=== PATIENT | female | born 1940 | race Caucasian/White ===

== ENCOUNTER 2018-01-31 22:43 | Emergency (ER) | payer MEDICARE, OTHER, SELFPAY ==
[2018-01-31 22:45] VITALS: BP 165/76; PULSE 62; RESP 20; TEMP 36.9; O2SAT 96; BMI 31.4
--- NOTE | 2018-01-31 23:44 | ED.VISSUMM ---
- ER Visit Summary Date of Service: 01/31/18 Chief Complaint: Fall History of Present Illness: The patient is a 77 F who presents after a fall that occurred tonight. Patient stood up from the couch and fell. Patient states she was not able to stand all the way up when she fell. Patient denies hitting her head or losing consciousness. Family states that they heard a pop when she fell. Patient states the pain is worse in her low back and both knees. Patient states her pain is worse with any movement. Patient denies any paresthesias. Patient was unable to stand or ambulate after the fall. Physical Examination: Vital signs are stable. Patient is afebrile. Patient is in no acute distress. Oral mucosa is pink and moist. Neck is supple there is no JVD noted. Heart was regular rate and rhythm. Lungs are clear and equal bilateral. There is no chest wall tenderness. Abdomen is soft and nontender. Musculoskeletal exam reveals tenderness over the lower lumbar spine. There is no bony crepitance or step-off. There is also tenderness over the knees bilaterally, worse on the right. There is some edema over the right knee. There is no ecchymosis noted. Range of motion was limited in all motions of the knees bilaterally secondary to pain. Extensor mechanisms are intact bilaterally. Sensation was intact to light touch in all digits of the lower extremities. Pedal pulses are equal bilateral. The remaining physical exam is within normal limits. Test Results: X-rays of both knees and the lumbar spine were obtained. There is no acute fracture. There is a large effusion noted in the right knee. CBC and basic metabolic profile were within normal limits. Emergency Department Course and Treatment: Patient was given injection of morphine here. Patient felt better on reevaluation. Patient wants to go home. Patient states she has canes at home to help her get around. Patient was given prescription for Tylenol with codeine. Patient was instructed to follow-up with her primary care physician in 5-7 days. Patient and family understood and are agreeable with the plan. All questions are answered. Disposition: Discharged home Impression: Bilateral knee contusions, lumbar strain, fall This note was generated with [email or web address].[email or web address] software. It may contain incorrect words, spelling, and punctuation that were not noted in review of the chart prior to signing ED Disposition - Plan for ED Patient: Disposition: Home or Assisted Living Chief Complaint: Fall Diagnosis: Contusion of knee, Acute lumbar myofascial strain, Fall Instructions: ED Fall Uncertain Cause Prescriptions: Acetaminophen/Codeine #3 [Tylenol#3] 1 tab PO Q6H PRN PRN 3 Days #12 tab PRN Reason: Pain Referrals: Keith Parr MD [Primary Care Provider] -
--- NOTE | 2018-02-01 | RAD_ITS ---
STUDY: X-RAY - RIGHT KNEE REASON FOR EXAM: Female, 77 years old. Patient fell TECHNIQUE: 2 view(s) of the knee. COMPARISON: None. FINDINGS: There is a total right knee replacement with a metallic hardware in good position. There is a fairly large knee joint effusion. Small than on the left side. The quadriceps and patellar tendons are normal.. RAD/Knee 1 or 2 Views IMPRESSION: A total right knee replacement with a large joint effusion. Metallic hardware is in good position. No fracture Electronically Signed: Monster Maxwell, at 1:30 EDT Tel , Service support ,
--- NOTE | 2018-02-01 | RAD_ITS ---
STUDY: X-RAY - LUMBAR SPINE REASON FOR EXAM: Female, 77 years old. Patient fell TECHNIQUE: 4 view(s) of the lumbar spine were obtained. COMPARISON: None FINDINGS: There is normal alignment and curvature of the lumbosacral spine with no acute fractures or dislocations. The disc spaces look fairly well maintained. The pedicles are intact. The aorta is calcified in its raymundo. RAD/Lumbar Spine 2 or 3 Views IMPRESSION: No acute fractures Electronically Signed: Monster Maxwell, at 1:36 EDT Tel , Service support ,
[2018-02-01] MEDS: Morphine 4 MG/ML Syringe IV (00:10)
--- NOTE | 2018-02-01 00:11 | NURSING ---
pt off backboard at 23:54
[2018-02-01 00:23] LABS: Absolute Lymphocyte Count 1.98 X10^3/ul (0.83-4.51); Absolute Neutrophil Count 9.3 X10^3/uL (2.0-7.7); Basophil# 0.04 X10^3/uL; Basophil% 0.3 % (0-1); Eosinophil# 0.52 X10^3/uL; Hematocrit 38.6 % (37-47); Hemoglobin 13.3 g/dl (12.0-15.0); Lymphocyte # 1.98 X10^3/ul (4.0); Lymphocyte % 15.3 % (19-41); Mean Corp Hgb Conc 34.5 g/gl (32-36); Mean Corpuscular Hgb 31.3 pg (27.0-32.0); Mean Corpuscular Volume 90.8 fL (81-99); Mean Platelet Vol. 9.9 fl (6.2-12.0); Monocyte# 0.97 X10^3/uL; Monocyte% 7.5 % (0-10); Neutrophil # 9.34 X10^3/uL (2.7-7.7); Neutrophil % 72.5 % (47-70); POSITIVE COUNT NO; POSITIVE DIFFERENTIAL NO; POSITIVE MORPHOLOGY NO; Platelet Count 209 K/mm3 (150-450); RBC Distribution Width CV 12.9 % (11.6-14.6); Red Blood Count 4.25 M/mm3 (4.2-5.4); White Blood Count 12.9 K/mm3 (4.4-11.0)
[2018-02-01 00:32] LABS: Anion Gap 9 (5-15); BUN 14 mg/dL (7-18); BUN/Creat Ratio 21.6 RATIO (10-20); Calcium,Total 9.2 mg/dL (8.5-10.1); Chloride 108 mmol/L (98-107); Creatinine, Serum 0.65 mg/dL (0.55-1.02); EST Glomerular Filtration Rate 95 mL/min (>60); Est Glom Filt Rate - Afr Amer 115 mL/min (>60); Estimated Creatinine Clearance 38.44 ml/min; Glucose 170 mg/dL (74-106); Potassium 3.2 mmol/L (3.5-5.1); Sodium Level 144 mmol/L (136-145)
--- NOTE | 2018-02-01 00:33 | RAD_ITS ---
STUDY: X-RAY - LEFT KNEE REASON FOR EXAM: Female, 77 years old. Patient fell TECHNIQUE: 3 view(s) of the knee. COMPARISON: None. FINDINGS: There is a total knee replacement with a metallic hardware in good position. There is a small knee joint effusion. The quadriceps and patellar tendons are normal. The surrounding soft tissues are normal. RAD/Knee 1 or 2 Views IMPRESSION: A total left knee replacement with a metallic hardware in good position. A small knee joint effusion Electronically Signed: Monster Maxewll, at 1:29 EDT Tel , Service support ,
[2018-02-01 02:56] VITALS: BP 162/57; PULSE 57; RESP 16; O2SAT 98
== END 2018-02-01 02:57 | disposition home or self-care (01) ==
PROVIDERS: Emergency Provider Emergency Medicine; Family Provider Family Medicine; PCP Family Medicine
DX: S39.012A Strain of muscle, fascia and tendon of lower back, initial encounter (principal); S80.02XA Contusion of left knee, initial encounter; S80.01XA Contusion of right knee, initial encounter; W18.39XA Other fall on same level, initial encounter; Y93.89 Activity, other specified; Y92.9 Unspecified place or not applicable; I10 Essential (primary) hypertension; E11.9 Type 2 diabetes mellitus without complications; F03.90 Unspecified dementia, unspecified severity, without behavioral disturbance, psychotic disturbance, mood disturbance, and anxiety; Z79.84 Long term (current) use of oral hypoglycemic drugs; Z79.899 Other long term (current) drug therapy
CPT/HCPCS: 72100; 73560; 80048; 85025; 96374; 99285

== ENCOUNTER 2018-08-23 15:03 | Emergency (ER) | payer MEDICARE, OTHER, SELFPAY ==
[2018-08-23 15:04] VITALS: BP 139/67; PULSE 67; RESP 17; TEMP 36.9; O2SAT 97; BMI 29.3
[2018-08-23 15:33] VITALS: TEMP 36.9; O2SAT 100
--- NOTE | 2018-08-23 16:10 | EKG12_ITS ---
Test Reason : SOB Blood Pressure : / mmHG Vent. Rate : 074 BPM Atrial Rate : 074 BPM P-R Int : 166 ms QRS Dur : 090 ms QT Int : 418 ms P-R-T Axes : 011 -38 030 degrees QTc Int : 463 ms Normal sinus rhythm Left axis deviation Moderate voltage criteria for LVH, may be normal variant Abnormal ECG Confirmed by JORY MURRIETA, JESUS ALBERTO ([id number]), publishing editor SIL OLOMS ([id number]) on 08/26/2018 1:52:35 PM Referred By: JOY Confirmed By:JESUS ALBERTO CORLEY MD
--- NOTE | 2018-08-23 16:15 | RAD_ITS ---
STUDY: X-RAY CHEST REASON FOR EXAM: Female, 78 years old. Shortness of breath, chest pain TECHNIQUE: Single AP portable view of the chest. COMPARISON: April 14, 2017 chest x-ray FINDINGS: The lungs are clear and expanded. There is no demonstrated pleural abnormality. Normal size heart. Normal mediastinum and trisha. Normal visualized pulmonary arteries. Normal visualized aortic arch and descending thoracic aorta. There are diffuse degenerative changes of the visualized thoracic spine. Normal visualized ribs, clavicles, and shoulders. There is no demonstrated abnormality of the visualized soft tissue structures of the upper abdomen. RAD/Chest 1 View (Portable) IMPRESSION: Degenerative changes, as described above. No demonstrated acute cardiopulmonary process. Electronically Signed: Willa Smith MD at 16:43 EST Tel , Service support ,
[2018-08-23 16:40] VITALS: BP 147/71; PULSE 78; RESP 16; TEMP 36.7; O2SAT 100; O2SAT 97
[2018-08-23 16:40] LABS: Absolute Lymphocyte Count 1.09 X10^3/ul (0.83-4.51); Absolute Neutrophil Count 6.6 X10^3/uL (2.0-7.7); Basophil# 0.06 X10^3/uL; Basophil% 0.7 % (0-1); Eosinophil# 0.52 X10^3/uL; Eosinophils% 5.9 % (0-5); Hematocrit 39.2 % (37-47); Hemoglobin 12.8 g/dl (12.0-15.0); Lymphocyte # 1.09 X10^3/ul (4.0); Lymphocyte % 12.3 % (19-41); Mean Corp Hgb Conc 32.7 g/gl (32-36); Mean Corpuscular Hgb 30.9 pg (27.0-32.0); Mean Corpuscular Volume 94.7 fL (81-99); Mean Platelet Vol. 10.1 fl (6.2-12.0); Monocyte# 0.54 X10^3/uL; Monocyte% 6.1 % (0-10); Neutrophil % 74.8 % (47-70); Platelet Count 224 K/mm3 (150-450); RBC Distribution Width CV 12.8 % (11.6-14.6); RBC Distribution Width SD 44.2 fl (35.1-43.9); Red Blood Count 4.14 M/mm3 (4.2-5.4); White Blood Count 8.8 K/mm3 (4.4-11.0)
[2018-08-23 16:41] LABS: POSITIVE COUNT NO; POSITIVE DIFFERENTIAL NO; POSITIVE MORPHOLOGY NO
[2018-08-23 16:59] LABS: Anion Gap 8 (5-15); BUN 16 mg/dL (7-18); BUN/Creat Ratio 20.6 RATIO (10-20); Calcium,Total 8.6 mg/dL (8.5-10.1); Chloride 108 mmol/L (98-107); Creatinine, Serum 0.78 mg/dL (0.55-1.02); EST Glomerular Filtration Rate 77 mL/min (>60); Est Glom Filt Rate - Afr Amer 93 mL/min (>60); Estimated Creatinine Clearance 37.85 ml/min; Glucose 177 mg/dL (74-106); Potassium 4.3 mmol/L (3.5-5.1); Sodium Level 141 mmol/L (136-145)
[2018-08-23 17:20] VITALS: BP 126/63; PULSE 75; PULSE 77; RESP 16; RESP 19; TEMP 36.3; O2SAT 95
--- NOTE | 2018-08-23 17:40 | ED.DCSUM_ITS ---
- ER Visit Summary Date of Service: 08/23/18 Chief Complaint: Shortness of breath History of Present Illness: The patient is a 78 F, diabetes hypertension and dementia. Was sent home in a.m. sudden onset of shortness of breath the last 2030 minutes but now since resolved. She denies any chest pain, fever or significant cough. No abdominal pain. No nausea no vomiting no diarrhea. No leg swelling. No hemoptysis. Currently she is symptom-free. She has had episodes like this before. Physical Examination: Well-appearing older female. Vital signs are stable and afebrile. Pulse ox 97% on room air no signs of hypoxia. She is in [place] no distress. She is lying in bed, comfortable. Her and daughter at bedside. HEENT exam unremarkable. Neck nontender no lymphadenopathy. No JVD. Lungs clear to auscultation bilaterally. Heart regular rate and rhythm no murmur rate about 70. Abdomen is soft and nontender. Normal bowel sounds no peritoneal signs. Remedies moves all 4. Calves nontender without edema or cords. Neurologically she is awake. Following commands. Answers questions. Test Results: CBC normal white count 8. Hemoglobin of 12. Electrolytes unremarkable normal creatinine and gap. Troponin normal. EKG sinus rhythm rate of 74 with no acute signs of CT or ischemia. No dysrhythmia. Chest x-ray portable one view no acute abnormality. Normal cardiac silhouette. Normal mediastinum. No infiltrate. No fluids or effusions. Emergency Department Course and Treatment: Repeat exam patient is doing completely well at 1733. Exam remains normal. We discussed multiple options i ncluding anxiety. Patient be discharged home to follow-up as needed. Treatment Plan: See her PCP as needed. Disposition: Discharge Impression: Acute transient dyspnea resolved of uncertain etiology History of diabetes and hypertension and dementia This note was generated with AlienVaultation software. It may contain incorrect words, spelling, and punctuation that were not noted in review of the chart prior to signing ED Disposition - Plan for ED Patient: Referrals: Keith Parr MD [Primary Care Provider] -
--- NOTE | 2018-08-23 17:40 | ED.DEP ---
ED Disposition - Plan for ED Patient: Disposition: Home or Assisted Living Instructions: ED Dyspnea Shortness of Breath Referrals: Keith Parr MD [Primary Care Provider] - As Needed Additional Instructions: If you have a recurrent episode of shortness of breath. Relax. And try to do slow deep breaths. If it does not resolve call the paramedics to come out and check her vital signs and her oxygen. Follow-up with your doctor as needed.
[2018-08-23 17:46] VITALS: BP 125/67; PULSE 78; RESP 16; O2SAT 96
== END 2018-08-23 17:50 | disposition home or self-care (01) ==
PROVIDERS: Emergency Provider Emergency Medicine; Family Provider Family Medicine; PCP Family Medicine
DX: R06.02 Shortness of breath (principal); E11.9 Type 2 diabetes mellitus without complications; I10 Essential (primary) hypertension; F03.90 Unspecified dementia, unspecified severity, without behavioral disturbance, psychotic disturbance, mood disturbance, and anxiety; Z79.84 Long term (current) use of oral hypoglycemic drugs; Z79.899 Other long term (current) drug therapy
CPT/HCPCS: 71045; 80048; 84484; 85025; 93005; 99285; A4216

== ENCOUNTER 2018-10-14 23:23 | Emergency (ER) | payer MEDICARE, OTHER, SELFPAY ==
[2018-10-14 23:25] VITALS: BP 158/73; PULSE 68; RESP 18; TEMP 37.2; O2SAT 97; BMI 29.5
--- NOTE | 2018-10-14 23:33 | EKG12_ITS ---
Test Reason : Blood Pressure : / mmHG Vent. Rate : 071 BPM Atrial Rate : 071 BPM P-R Int : 162 ms QRS Dur : 098 ms QT Int : 430 ms P-R-T Axes : 011 -40 035 degrees QTc Int : 467 ms Normal sinus rhythm with sinus arrhythmia Left axis deviation Moderate voltage criteria for LVH, may be normal variant Poor R-Wave Progression Abnormal ECG Confirmed by APARNA MURRIETA, JOELLE ([id number]), photography editor CRISTOFER MOREL ([id number]) on 10/16/2018 1:35:08 PM Referred By: Confirmed By:JOELLE BRAUN MD
--- NOTE | 2018-10-14 23:37 | ED.DCSUM_ITS ---
- ER Visit Summary Date of Service: 10/14/18 Chief Complaint: Shortness of breath History of Present Illness: The patient is a 78 F presenting with shortness of breath. She states this started this evening. She denies chest pain. She has had a mild nonproductive cough. She denies fever. She has a history of diabetes, hypertension, hypercholesteremia, dementia, sleep apnea. She does not wear home O2. She has had similar episodes in the past that were diagnosed as likely anxiety. Her symptoms are now resolved on arrival to the ED. Physical Examination: Vitals are stable. Patient is afebrile. Alert no acute distress. Pulse ox 98% on room air HEENT exam is unremarkable. Neck is supple. Lungs are clear and equal bilaterally. Heart is regular rate and rhythm. Abdomen is soft nontender nondistended. Extremities are unremarkable. No edema Skin is warm and dry. No focal neurologic deficit. Remainder of exam is unremarkable. Emergency Department Course and Treatment: Chest x-ray shows no acute process. EKG is sinus rate 71 unchanged from previous. CBC, chemistries unremarkable. Troponin is negative. Repeat troponin is also negative. Patient remains asymptomatic in the ED. Her pulse ox remains 95-97% on room air. Advised to follow-up with primary care physician. Advised return to ED if worsening complaints. Disposition: Discharge home Impression: Dyspnea, resolved This note was generated with piSociety dictation software. It may contain incorrect words, spelling, and punctuation that were not noted in review of the chart prior to signing ED Disposition - Plan for ED Patient: Instructions: ED Dyspnea Shortness of Breath Referrals: Keith Parr MD [Primary Care Provider] -
--- NOTE | 2018-10-14 23:42 | RAD_ITS ---
STUDY: X-RAY CHEST REASON FOR EXAM: Female, 78 years old. Chest pain with shortness of breath. TECHNIQUE: AP portable chest. COMPARISON: August 23, 2018. FINDINGS: The lungs are clear and expanded. There is no demonstrated pleural abnormality. Normal size heart. Normal mediastinum and trisha. Normal visualized pulmonary arteries. Normal visualized aortic arch and descending thoracic aorta. Normal visualized thoracic spine. Normal visualized ribs, clavicles, and shoulders. There is no demonstrated abnormality of the visualized soft tissue structures of the upper abdomen. RAD/Chest 1 View (Portable) IMPRESSION: No acute cardiopulmonary disease. Electronically Signed: Vadim Steele MD at 1:36 EDT , Service support ,
[2018-10-14 23:46] LABS: Absolute Neutrophil Count 6.5 X10^3/uL (2.0-7.7); Basophil# 0.05 X10^3/uL; Basophil% 0.5 % (0-1); Eosinophil# 0.91 X10^3/uL; Eosinophils% 8.4 % (0-5); Hematocrit 37.8 % (37-47); Lymphocyte % 22.2 % (19-41); Mean Corp Hgb Conc 34.4 g/gl (32-36); Mean Corpuscular Hgb 31.4 pg (27.0-32.0); Mean Corpuscular Volume 91.3 fL (81-99); Mean Platelet Vol. 9.6 fl (6.2-12.0); Monocyte# 0.95 X10^3/uL; Monocyte% 8.8 % (0-10); Neutrophil # 6.49 X10^3/uL (2.7-7.7); Neutrophil % 59.9 % (47-70); Platelet Count 224 K/mm3 (150-450); RBC Distribution Width SD 42.7 fl (35.1-43.9); Red Blood Count 4.14 M/mm3 (4.2-5.4); White Blood Count 10.8 K/mm3 (4.4-11.0)
[2018-10-14 23:49] LABS: POSITIVE COUNT NO; POSITIVE DIFFERENTIAL NO; POSITIVE MORPHOLOGY NO
[2018-10-15 00:03] LABS: Anion Gap 7 (5-15); BUN 21 mg/dL (7-18); BUN/Creat Ratio 31.9 RATIO (10-20); Calcium,Total 8.7 mg/dL (8.5-10.1); Chloride 107 mmol/L (98-107); Creatinine, Serum 0.66 mg/dL (0.55-1.02); EST Glomerular Filtration Rate 93 mL/min (>60); Est Glom Filt Rate - Afr Amer 112 mL/min (>60); Estimated Creatinine Clearance 37.85 ml/min; Glucose 148 mg/dL (74-106); Potassium 3.8 mmol/L (3.5-5.1); Sodium Level 140 mmol/L (136-145)
--- NOTE | 2018-10-15 01:15 | ED.RN ---
Called radiology, PACS was down, now operational. [employer] sent everything for an official reading but it will be a while.
[2018-10-15 01:41] VITALS: BP 148/75; PULSE 73; RESP 14; O2SAT 96
[2018-10-15 03:03] VITALS: BP 143/64; PULSE 75; RESP 18; O2SAT 93
--- NOTE | 2018-10-15 03:21 | ED.DEP ---
ED Disposition - Plan for ED Patient: Instructions: ED Dyspnea Shortness of Breath Referrals: Keith Parr MD [Primary Care Provider] -
[2018-10-15 03:39] VITALS: BP 143/64; PULSE 73; RESP 16; O2SAT 97
== END 2018-10-15 03:40 | disposition home or self-care (01) ==
PROVIDERS: Emergency Provider Emergency Medicine; Family Provider Family Medicine; PCP Family Medicine
DX: R06.02 Shortness of breath (principal); I10 Essential (primary) hypertension; E11.9 Type 2 diabetes mellitus without complications; F03.90 Unspecified dementia, unspecified severity, without behavioral disturbance, psychotic disturbance, mood disturbance, and anxiety; Z79.84 Long term (current) use of oral hypoglycemic drugs; Z79.899 Other long term (current) drug therapy
CPT/HCPCS: 71045; 80048; 84484; 85025; 93005; 99285; A4216

== ENCOUNTER 2021-10-24 22:30 | Emergency (ER) | payer MEDICARE, OTHER, SELFPAY ==
[2021-10-24 22:32] VITALS: TEMP 35.7; O2SAT 94; BMI 27.4
[2021-10-24 22:35] VITALS: BP 148/67; PULSE 71; RESP 19; O2SAT 95
[2021-10-24 22:37] VITALS: O2SAT 95
--- NOTE | 2021-10-24 22:53 | RAD_ITS ---
STUDY: X-RAY CHEST REASON FOR EXAM: Female, 81 years old. sob TECHNIQUE: AP portable upright COMPARISON: 10/14/2018. FINDINGS: The lungs are clear and expanded. There is no demonstrated pleural abnormality. Normal size heart. Normal mediastinum and trisha. Normal visualized pulmonary arteries. Normal visualized aortic arch and descending thoracic aorta. Normal visualized thoracic spine. Normal visualized ribs, clavicles, and shoulders. There is no demonstrated abnormality of the visualized soft tissue structures of the upper abdomen. RAD/Chest 1 View (Portable) IMPRESSION: Normal x-ray examination of the chest. Electronically Signed: Zach Patel MD at 23:48 EDT ,
--- NOTE | 2021-10-24 22:53 | EKG12_ITS ---
Test Reason : DYSRHYTHMIA Blood Pressure : / mmHG Vent. Rate : 062 BPM Atrial Rate : 062 BPM P-R Int : 146 ms QRS Dur : 094 ms QT Int : 450 ms P-R-T Axes : 035 -41 042 degrees QTc Int : 456 ms Normal sinus rhythm with sinus arrhythmia Left axis deviation Abnormal ECG Confirmed by JORY MURRIETA, JESUS ALBERTO ([id number]), commercial production editor CRISTOFER MOREL ([id number]) on 10/26/2021 9:44:43 AM Referred By: LUIS Confirmed By:JESUS ALBERTO CORLEY MD
--- NOTE | 2021-10-24 22:54 | ED.VIS.DYS ---
HPI History of Present Illness Chief Complaint: Shortness of Breath Narrative Narrative: Patient presents with dyspnea. Apparently was slightly worse tonight, however per over the past few years she has episodes of dyspnea and wheezing every night before bed. The ambulance was called because she was feeling somewhat worse today. No fevers or chills recently, patient is denying chest pain and she says she is feeling much better now. She has dementia thus her history is somewhat limited, most of the history I obtained is from . PFSH PFSH Home Medications amlodipine 10 mg PO DAILY 04/14/17 [History Last Taken Unknown] atenolol 50 mg PO BID 04/14/17 [History Last Taken Unknown] budesonide-formoterol [Symbicort] 2 puff INHALATION BID 04/14/17 [History Last Taken Unknown] calcium carbonate-vitamin D3 [Calcium 600 + D(3)] 1 ea PO BID 04/14/17 [History Last Taken Unknown] cholecalciferol (vitamin D3) 50,000 unit PO QWEEK 04/14/17 [History Last Taken Unknown] donepezil 10 mg PO QHS 04/14/17 [History Last Taken Unknown] linagliptin [Tradjenta] 5 mg PO DAILY 04/14/17 [History Last Taken Unknown] lisinopril 40 mg PO DAILY 04/14/17 [History Last Taken Unknown] metformin 1,000 mg PO BIDCM 04/14/17 [History Last Taken Unknown] omega-3 fatty acids 1,000 mg PO DAILY 04/14/17 [History Last Taken Unknown] pravastatin 10 mg PO DAILY 04/14/17 [History Last Taken Unknown] vit A,C and A-[id number]-[id number] [Vision Formula (with lutein)] 1 ea PO DAILY 04/14/17 [History Last Taken Unknown] vitamin E mixed 400 unit PO DAILY 04/14/17 [History Last Taken Unknown] magnesium oxide 400 mg PO DAILYCM #30 tab 04/16/17 [Rx Last Taken Unknown] Ranitidine [Zantac] 150 mg PO BID 08/23/18 [History Last Taken Unknown] memantine 1 tab PO BID 08/23/18 [History Last Taken Unknown] Allergy/AdvReac Type Severity Reaction Status Date / Time Penicillins [PCN] AdvReac Unknown Verified 10/14/18 23:29 Social History Smoking Status: Never smoker ROS ROS ED ROS Narrative Past medical history: Reviewed, includes COPD, dementia, hypertension, hyperlipidemia, diabetes on metformin. Medications: Reviewed Social history: Lives with her Review of systems: All systems negative except as indicated, they are mostly obtained from although the patient does help. General: No fever Eyes: Negative ENT: No upper airway congestion, normal voice Neck: No neck pain Cardiovascular: No chest pain Respiratory: As in HPI Gastrointestinal: No abdominal pain, nausea vomiting or diarrhea Genitourinary: No dysuria Musculoskeletal: Denies myalgias no difficulty with ambulation Skin: No rash Neurological: No recent focal weakness Psych: No recent behavioral changes Hematologic: No easy bleeding or easy bruising EXAM Physical Exam Narrative Exam Narrative: Physical exam General: Patient appears chronically ill but she appears comfortable. Head: Normocephalic, Atraumatic Eyes: Conjunctiva not pale ENT: Moist mucous membranes Neck: Supple, Nontender, No lymphadenopathy Cardiovascular: Regular rate, Regular rhythm Respiratory: Bilateral end expiratory wheezing although she is speaking in full sentences. She is breathing about 16 or 17/min. Abdomen: Soft, Nontender, Nondistended Back: Nontender, Normal Inspection. Negative for: CVA tenderness Extremities: Nontender, No edema Skin: Normal color, No rash Neurological: Alert, Normal Strength, Normal Sensation Psychological: Normal affect Const Vital Signs: 10/24/21 22:32 10/24/21 22:35 10/24/21 22:37 Temperature 96.3 F L Temperature Source Temporal Pulse Rate 71 Respiratory Rate 19 H Respiratory Effort Short of Breath Respiratory Depth Normal Respiratory Pattern Normal Blood Pressure 148/67 H Blood Pressure Mean 94 Pulse Ox 94 95 Oxygen Delivery Method Room Air Room Air Room Air 10/24/21 23:05 10/24/21 23:47 Temperature Temperature Source Pulse Rate 76 86 Respiratory Rate 16 18 Respiratory Effort Respiratory Depth Respiratory Pattern Normal Blood Pressure 160/71 H Blood Pressure Mean 100 Pulse Ox 96 Oxygen Delivery Method Room Air MDM MDM MDM Narrative Medical decision making narrative: Patient was given a breathing treatment and significantly improved, she has no more wheezing. She was ambulated around the emergency department and did not desaturate. She feels better symptomatically. I will discharge her, I will give her a pulmonology referral, at this time she was given 1 treatment and she improved she has mild asthma and she is slightly hyperglycemic I do not believe steroids are needed at this time. I talked to her and they do have an albuterol it seemed like he did not know when to use the inhaler, he has not used it in quite some time. I told him to use it at least every night before she has the symptoms since these seem to be chronic. Otherwise I will discharge in stable condition. Lab Data Labs: Laboratory Results - last 24 hr 10/24/21 10/24/21 22:55 22:55 WBC 9.5 RBC 4.08 L Hgb 12.7 Hct 38.3 MCV 93.9 MCH 31.1 MCHC 33.2 RDW Std Deviation 43.9 RDW Coeff of Pritesh 12.9 Plt Count 221 MPV 10.5 Immature Gran % (Auto) 1.000 H Neut % (Auto) 64.9 Lymph % (Auto) 17.7 L [place] % (Auto) 7.8 Eos % (Auto) 8.0 H Baso % (Auto) 0.6 Absolute Neuts (auto) 6.2 Absolute Lymphs (auto) 1.69 Nucleated RBC % 0 Sodium 140 Potassium 3.9 Chloride 107 Carbon Dioxide 24.0 Anion Gap 9 BUN 22 H Creatinine 0.79 Estim Creat Clear Calc 41.05 Est GFR (MDRD) Af Amer 91 Est GFR (MDRD) Non-Af 75 BUN/Creatinine Ratio 28.0 H Glucose 213 H Calcium 9.0 Total Bilirubin 0.20 AST 10 L ALT 15 Alkaline Phosphatase 94 Troponin I High Sens 37 Total Protein 7.2 Albumin 3.2 Globulin 4.0 Albumin/Globulin Ratio 0.8 L Radiography Chest X-Ray - ED: 1 View Diagnostic Testin view chest x-ray read by me does not show any acute process EKG Initial EKG: Comments: Sinus rhythm with a rate of 62. Normal FL and QTc intervals. Left axis deviation. Slight ST changes throughout which are quite nonspecific Interpreted by emergency doctor Discharge Plan Triage Chief Complaint: Shortness of Breath ED Provider: Tripp Mcfadden Dx/Rx/DC Orders Clinical Impression: COPD (chronic obstructive pulmonary disease), Bilateral wheezing Instructions: COPD: Using Inhalers Prescriptions: No Action omega-3 fatty acids 1,000 MG capsule 1,000 mg PO DAILY RF: 0 donepezil 10 MG tablet 10 mg PO QHS RF: 0 calcium carbonate-vitamin D3 [Calcium 600 + D(3)] 1 EACH tablet 1 ea PO BID RF: 0 pravastatin 10 MG tablet 10 mg PO DAILY RF: 0 amlodipine 10 MG tablet 10 mg PO DAILY RF: 0 metformin 1,000 MG tablet 1,000 mg PO BIDCM RF: 0 lisinopril 40 MG tablet 40 mg PO DAILY RF: 0 atenolol 50 MG tablet 50 mg PO BID RF: 0 vit A,C and C-[id number]-bmqypagu [Vision Formula (with lutein)] 1 EACH tablet 1 ea PO DAILY RF: 0 cholecalciferol (vitamin D3) 50,000 UNIT capsule 50,000 unit PO QWEEK RF: 0 budesonide-formoterol [Symbicort] 1 INHALER inhaler 2 puff inhalation BID RF: 0 linagliptin [Tradjenta] 5 MG tablet 5 mg PO DAILY RF: 0 vitamin E mixed 400 UNIT tablet 400 unit PO DAILY RF: 0 magnesium oxide 400 MG tablet 400 mg PO DAILYCM Qty: 30 RF: 0 memantine 10 MG tablet 1 tab PO BID RF: 0 Ranitidine [Zantac] 150 MG tablet 150 mg PO BID RF: 0 Primary Care Provider: Keith Parr Referrals: Zack Burden MD [STAFF PHYSICIAN] - 3-5 Days Keith Parr MD [Primary Care Provider] - Disposition Disposition: Home, Self Care
[2021-10-24 23:05] VITALS: PULSE 76; RESP 16
[2021-10-24] MEDS: Ipratropium/Albuterol Sulfate 3 ML AMPUL.NEB INHALATION (23:05)
[2021-10-24 23:26] LABS: ALB/GLOB Ratio 0.8 RATIO (0.9-2.4); AST(SGOT) 10 U/L (15-37); Alanine Aminotransfer ALT/SGPT 15 U/L (13-56); Albumin, Serum 3.2 g/dL (3.2-5.0); Alkaline Phosphatase 94 U/L (45-117); Anion Gap 9 (5-15); BUN 22 mg/dL (7-18); Chloride 107 mmol/L (98-107); Creatinine, Serum 0.79 mg/dL (0.55-1.02); EST Glomerular Filtration Rate 75 mL/min (>60); Est Glom Filt Rate - Afr Amer 91 mL/min (>60); Estimated Creatinine Clearance 41.05 ml/min; Glucose 213 mg/dL (74-106); Potassium 3.9 mmol/L (3.5-5.1); Protein, Total 7.2 g/dL (6.4-8.2); Sodium Level 140 mmol/L (136-145); Troponin-I HS 37 pg/mL (3.0-54.0)
[2021-10-24 23:29] LABS: Absolute Lymphocyte Count 1.69 X10^3/uL (0.83-4.51); Absolute Neutrophil Count 6.2 X10^3/uL (2.0-7.7); Basophil# 0.06 X10^3/uL; Basophil% 0.6 % (0-1); Eosinophil# 0.76 X10^3/uL; Hematocrit 38.3 % (37-47); Hemoglobin 12.7 g/dL (12.0-15.0); Lymphocyte # 1.69 X10^3/ul (0.83-4.51); Lymphocyte % 17.7 % (19-41); Mean Corp Hgb Conc 33.2 g/dL (32-36); Mean Corpuscular Hgb 31.1 pg (27.0-32.0); Mean Corpuscular Volume 93.9 fL (81-99); Mean Platelet Vol. 10.5 fl (6.2-12.0); Monocyte# 0.74 X10^3/uL; Monocyte% 7.8 % (0-10); NRBC Flagged by Analyzer 0 % (0-5); Neutrophil # 6.19 X10^3/uL (2.7-7.7); Neutrophil % 64.9 % (47-70); Platelet Count 221 K/mm3 (150-450); RBC Distribution Width CV 12.9 % (11.6-14.6); RBC Distribution Width SD 43.9 fl (35.1-43.9); Red Blood Count 4.08 M/mm3 (4.2-5.4); White Blood Count 9.5 K/mm3 (4.4-11.0)
[2021-10-24 23:47] VITALS: BP 160/71; PULSE 86; RESP 18; O2SAT 96
[2021-10-25 00:05] VITALS: BP 160/71; PULSE 77; RESP 18; O2SAT 94
== END 2021-10-25 00:06 | disposition home or self-care (01) ==
PROVIDERS: Emergency Provider Emergency Medicine; PCP Family Medicine; Visit Provider Emergency Medicine
DX: J44.9 Chronic obstructive pulmonary disease, unspecified (principal); F03.90 Unspecified dementia, unspecified severity, without behavioral disturbance, psychotic disturbance, mood disturbance, and anxiety; R06.2 Wheezing
CPT/HCPCS: 71045; 80053; 84484; 85025; 93005; 94640; 99285; A4216

== ENCOUNTER 2021-10-29 18:53 | Emergency (ER) | payer MEDICARE, OTHER, SELFPAY ==
[2021-10-29 18:55] VITALS: BP 165/86; PULSE 69; RESP 20; TEMP 37.3; O2SAT 95; BMI 60.5
--- NOTE | 2021-10-29 19:17 | RAD_ITS ---
INDICATION: sob EXAMINATION/TECHNIQUE: X-RAY - XR Chest 1 View COMPARISON: 10/24/2021 chest x-ray FINDINGS: LINES/DEVICES: None. LUNGS: Symmetric normal lung volumes. No airspace opacity or abnormal interstitial pattern. No nodule or mass. No pleural effusion or pneumothorax. MEDIASTINUM AND CARDIOVASCULAR STRUCTURES: Normal size and contour of the cardiomediastinal silhouette. No evidence of pulmonary vascular congestion. BONES AND SOFT TISSUES: Chronic degenerative changes spine with no focal osseous lesion exemplified. Degenerative before meals arthropathy. RAD/Chest 1 View (Portable) IMPRESSION: 1. No radiographic evidence of acute cardiopulmonary disease. Electronically Signed: Aayush Roberts DO at 20:13 EDT ,
--- NOTE | 2021-10-29 19:17 | EKG12_ITS ---
Test Reason : DYSRHYTHMIA Blood Pressure : / mmHG Vent. Rate : 061 BPM Atrial Rate : 061 BPM P-R Int : 154 ms QRS Dur : 092 ms QT Int : 446 ms P-R-T Axes : 034 -47 027 degrees QTc Int : 448 ms Normal sinus rhythm Left anterior fascicular block Voltage criteria for left ventricular hypertrophy Nonspecific ST abnormality Abnormal ECG Confirmed by JORY MURRIETA, JESUS ALBERTO ([id number]), scientific publications editor CRISTOFER MOREL ([id number]) on 10/31/2021 1:30:54 PM Referred By: CELSA Confirmed By:JESUS ALBERTO CORLEY MD
--- NOTE | 2021-10-29 19:19 | EDS_ITS ---
HPI History of Present Illness Chief Complaint: Shortness of Breath Informant: patient, family and EMS Onset/Context/Timing Onset: Weeks (1) Context: gradual Timing: Continuous and Waxes and wanes Quality: Positive for Wheezing Current Severity: Moderate Maximum Severity: Severe Worsened by: Exertion and Coughing Relieved by: Oxygen and Albuterol Associated Symptoms cough and white sputum Chest Pain: Positive for Tightness Narrative Narrative: Patient has had respiratory illness versus allergies, family states they are not sure, patient has dementia and limited information from her, for the past week. She was seen here at the beginning of the illness, I reviewed the chart briefly. She had a negative chest x-ray and responded very well to a lbuterol, they have been doing that at home tonight she did not respond well to it and was very dyspneic and complaining of significant chest tightness so they called EMS to have her reevaluated here. She has not yet been able to follow-up and now it is the weekend. Family states that the PCP office in the past he has told them that he was suspicious of possibly underlying asthma, she was never a smoker and never diagnosed with emphysema according to the family. She denies any swelling in the legs, GI symptoms, urinary problems lately. She has some mild tightness and wheezing right now but does not feel as bad as she did prior to getting here. For EMS, she was 86-87% on room air at rest and wheezy. [facility] Medical History (Updated 10/29/21 @ 20:[address] Blaise Wellington MD) COPD (chronic obstructive pulmonary disease) Dementia Diabetes mellitus type 2, controlled Hyperlipidemia Hypertension Home Medications amlodipine 10 mg PO DAILY 04/14/17 [History Last Taken Unknown] atenolol 50 mg PO BID 04/14/17 [History Last Taken Unknown] calcium carbonate-vitamin D3 [Calcium 600 + D(3)] 1 ea PO DAILY 04/14/17 [History Last Taken Unknown] donepezil 10 mg PO QHS 04/14/17 [History Last Taken Unknown] lisinopril 40 mg PO DAILY 04/14/17 [History Last Taken Unknown] metformin 1,000 mg PO BIDCM 04/14/17 [History Last Taken Unknown] pravastatin 10 mg PO DAILY 04/14/17 [History Last Taken Unknown] vitamin E mixed 400 unit PO DAILY 04/14/17 [History Last Taken Unknown] memantine 1 tab PO BID 08/23/18 [History Last Taken Unknown] famotidine 20 mg PO DAILY 10/29/21 [History Last Taken Unknown] guselkumab [Tremfya] mg SUBCUT 10/29/21 [History Last Taken Unknown] prednisone 40 mg PO DAILY #10 tablet 10/29/21 [Rx Last Taken Unknown] Allergy/AdvReac Type Severity Reaction Status Date / Time Fish Containing Products Allergy Hives Verified 10/29/21 19:23 Penicillins [PCN] AdvReac Unknown Verified 10/14/18 23:29 fish Allergy Hives Uncoded 10/29/21 19:23 Social History Smoking Status: Never smoker ROS ROS ED Review of Systems ROS Unobtainable: due to mental condition Constitutional Constitutional ED: Reports malaise; Denies chills or fever(s) Eyes Eyes: Denies change in vision or diplopia ENT ENT ED: Denies rhinorrhea or sore throat Cardiovascular Cardiovascular: Reports as per HPI and chest pain; Denies palpitations Respiratory/Chest Respiratory/Chest: Reports as per HPI, chest tightness, cough, dyspnea and wheezing Gastrointestinal Gastrointestinal: Denies abdominal pain, diarrhea, nausea or vomiting Genitourinary Genitourinary ED: Denies dysuria or hematuria Musculoskeletal Musculoskeletal: Denies back pain or neck pain Integumentary Denies abscess or rash Neurologic Neurologic: Denies headache(s) or weakness EXAM Physical Exam Const Vital Signs: 10/29/21 18:55 10/29/21 19:04 10/29/21 19:31 Temperature 99.2 F H Temperature Source Oral Pulse Rate 69 65 Respiratory Rate 20 H 20 H Respiratory Effort Normal Respiratory Depth Normal Normal Respiratory Pattern Normal Blood Pressure 165/86 H Blood Pressure Mean 112 Pulse Ox 95 96 Oxygen Delivery Method Room Air Room Air 10/29/21 20:55 Temperature Temperature Source Pulse Rate 73 Respiratory Rate 18 Respiratory Effort Respiratory Depth Respiratory Pattern Blood Pressure 181/68 H Blood Pressure Mean 105 Pulse Ox 99 Oxygen Delivery Method Room Air Positive well nourished and well developed General Appearance ED: well developed and NAD HEENT Reports moist mucous membranes normocephalic and atraumatic Eyes PERRL and EOMs intact bilaterally Neck full ROM and supple Resp no retractions Resp Narrative: Tachypneic, mild respiratory distress Effort and Inspection: Negative for pursed lip breathing, grunting, stridor, actively coughing or uses accessory muscles Auscultation: rhonchi lower bilaterally and wheezes expiratory wheezes and throughout Cardio regular rate, regular rhythm, no murmurs and no JVD Cardio Narrative: Faint heart sounds GI non-tender and non-distended Auscultation: normoactive bowel sounds Palpation: soft Back/Spine no CVA tenderness General Back: other FROM Extremity normal to inspection and no calf tenderness General Extremety ED: Negative for edema, pulses abnormal or tenderness General Extremity: Negative for edema or pulses abnormal Neuro oriented x3, CN's II-XII intact bilaterally and no sensory deficits noted Sensorium / Orientation: awake and alert Motor Exam: strength 5/5 throughout Skin no rashes or lesions noted and no wounds MDM MDM MDM Narrative Medical decision making narrative: After nebulizer treatments patient is much improved. On reexamination her lungs are clear to auscultation throughout, she states her chest tightness is resolved. She is satting well while in the room. She was given Solu-Medrol, given that she continues to have progressively worsening wheezing and tightness that sounds pulmonary, and her work-up supports this as opposed to being cardiac in etiology. She does not have pneumonia on the chest x-ray. We ambulated her, and she went to 89% for a couple of seconds but did not feel dyspneic and for the most part was in the mid-high 90s even with walking. Offered admission but they declined and would prefer to keep her home as long as it is safe and since she is doing so much better they would be okay with that. Family states she has seasonal allergies every spring, which is now, and they wonder whether she could have a viral cold or this could be seasonal allergies. I agree the differential still includes both. She is taking generic for Zyrtec, I recommend switching it to a different allergy medication and they may try daily inhaled Flonase as well, I recommend outpatient follow-up, will prescribe her a burst of prednisone. Her random blood sugar is 188 today. She does not have known diabetes, it is possible she is borderline since she was 215 or so when she was here last week. She will need to follow-up for a recheck and reevaluation. Lab Data Attestation: I reviewed the patient's lab results. Labs: Laboratory Results - last 24 hr 10/29/21 10/29/21 10/29/21 19:45 19:45 19:45 WBC 7.9 RBC 4.34 Hgb 13.4 Hct 39.9 MCV 91.9 MCH 30.9 MCHC 33.6 RDW Std Deviation 42.8 RDW Coeff of Pritesh 12.7 Plt Count 231 MPV 10.3 Immature Gran % (Auto) 0.500 Neut % (Auto) 57.8 Lymph % (Auto) 23.3 [place] % (Auto) 8.5 Eos % (Auto) 9.4 H Baso % (Auto) 0.5 Absolute Neuts (auto) 4.6 Absolute Lymphs (auto) 1.83 Nucleated RBC % 0 Sodium 142 Potassium 4.0 Chloride 106 Carbon Dioxide 26.0 Anion Gap 10 BUN 17 Creatinine 0.79 Estim Creat Clear Calc 37.74 Est GFR (MDRD) Af Amer 90 Est GFR (MDRD) Non-Af 74 BUN/Creatinine Ratio 21.4 H Glucose 188 H Calcium 9.4 Troponin I High Sens 34 B-Natriuretic Peptide 127.2 H Radiography Chest X-Ray - ED: 1 View, Read by ED Physician and No Acute Disease Diagnostic Testing: Clinical Impression(s) from Imaging Studies Chest X-Ray 10/29/21 19:17 IMPRESSION: 1. No radiographic evidence of acute cardiopulmonary disease. Electronically Signed: Aayush Roberts DO at 20:13 EDT Reading Location ID and State: [facility] / [place] Tel , Service support , Rhythm Strip Rhythm Strip: Sinus Rhythm Rate: 70 Ectopy: None EKG Initial EKG: Attestation: I personally reviewed and interpreted this EKG as follows: Interpretation: Sinus Rhythm, No Acute Injury Pattern, LAFB and Non- Specific ST Changes Prior EKG tracings: available for review Prior: Unchanged Discharge Plan Triage Chief Complaint: Shortness of Breath ED Provider: Blaise Wellington Dx/Rx/DC Orders Clinical Impression: RAD (reactive airway disease) with wheezing, Viral URI with cough, Chest tightness Instructions: ED Asthma, Acute (Adult) Prescriptions: New prednisone 20 MG tablet 40 mg PO DAILY Qty: 10 RF: 0 No Action donepezil 10 MG tablet 10 mg PO QHS RF: 0 calcium carbonate-vitamin D3 [Calcium 600 + D(3)] 1 EACH tablet 1 ea PO DAILY RF: 0 pravastatin 10 MG tablet 10 mg PO DAILY RF: 0 amlodipine 10 MG tablet 10 mg PO DAILY RF: 0 metformin 1,000 MG tablet 1,000 mg PO BIDCM RF: 0 lisinopril 40 MG tablet 40 mg PO DAILY RF: 0 atenolol 50 MG tablet 50 mg PO BID RF: 0 vitamin E mixed 400 UNIT tablet 400 unit PO DAILY RF: 0 memantine 10 MG tablet 1 tab PO BID RF: 0 famotidine 20 mg Tablet 20 mg PO DAILY RF: 0 Tremfya 100 mg/mL auto-injector SUBCUT RF: 0 Primary Care Provider: Keith Parr Referrals: Keith Parr MD [Primary Care Provider] - (This coming week, call for appointment) Disposition Disposition: Home, Self Care
[2021-10-29 19:31] VITALS: PULSE 65; RESP 20; O2SAT 96
[2021-10-29] MEDS: Ipratropium/Albuterol Sulfate 3 ML AMPUL.NEB INHALATION (19:31)
[2021-10-29] MEDS: Albuterol 2.5 MG/3 ML VIAL.NEB. INHALATION (19:31)
[2021-10-29] MEDS: MethylPREDNISolone 125 MG/2 ML Vial IV (19:41)
[2021-10-29 19:54] LABS: Absolute Lymphocyte Count 1.83 X10^3/uL (0.83-4.51); Absolute Neutrophil Count 4.6 X10^3/uL (2.0-7.7); Basophil# 0.04 X10^3/uL; Basophil% 0.5 % (0-1); Eosinophil# 0.74 X10^3/uL; Eosinophils% 9.4 % (0-5); Hematocrit 39.9 % (37-47); Hemoglobin 13.4 g/dL (12.0-15.0); Lymphocyte # 1.83 X10^3/ul (0.83-4.51); Lymphocyte % 23.3 % (19-41); Mean Corp Hgb Conc 33.6 g/dL (32-36); Mean Corpuscular Hgb 30.9 pg (27.0-32.0); Mean Corpuscular Volume 91.9 fL (81-99); Mean Platelet Vol. 10.3 fl (6.2-12.0); Monocyte# 0.67 X10^3/uL; Monocyte% 8.5 % (0-10); NRBC Flagged by Analyzer 0 % (0-5); Neutrophil # 4.55 X10^3/uL (2.7-7.7); Neutrophil % 57.8 % (47-70); Platelet Count 231 K/mm3 (150-450); RBC Distribution Width CV 12.7 % (11.6-14.6); RBC Distribution Width SD 42.8 fl (35.1-43.9); Red Blood Count 4.34 M/mm3 (4.2-5.4); White Blood Count 7.9 K/mm3 (4.4-11.0)
--- NOTE | 2021-10-29 20:11 | CPS ---
x1 Albuterol given to pt. in ER as well
[2021-10-29 20:15] LABS: Anion Gap 10 (5-15); BUN 17 mg/dL (7-18); BUN/Creat Ratio 21.4 RATIO (10-20); Calcium,Total 9.4 mg/dL (8.5-10.1); Chloride 106 mmol/L (98-107); Creatinine, Serum 0.79 mg/dL (0.55-1.02); EST Glomerular Filtration Rate 74 mL/min (>60); Est Glom Filt Rate - Afr Amer 90 mL/min (>60); Estimated Creatinine Clearance 37.74 ml/min; Glucose 188 mg/dL (74-106); Sodium Level 142 mmol/L (136-145); Troponin-I HS 34 pg/mL (3.0-54.0)
[2021-10-29 20:23] LABS: BNP,B-Type NATRIURETIC PEPTIDE 127.2 pg/mL (0-100)
[2021-10-29 20:45] VITALS: O2SAT 95
[2021-10-29 20:55] VITALS: BP 181/68; PULSE 73; RESP 18; O2SAT 99
[2021-10-29 20:56] VITALS: BP 181/86; PULSE 78; RESP 16; O2SAT 98
== END 2021-10-29 21:39 | disposition home or self-care (01) ==
PROVIDERS: Emergency Provider Emergency Medicine; PCP Family Medicine; Visit Provider Emergency Medicine
DX: J45.909 Unspecified asthma, uncomplicated (principal); E11.9 Type 2 diabetes mellitus without complications; J06.9 Acute upper respiratory infection, unspecified; R07.89 Other chest pain; I10 Essential (primary) hypertension; E78.5 Hyperlipidemia, unspecified; Z79.899 Other long term (current) drug therapy; Z79.84 Long term (current) use of oral hypoglycemic drugs
CPT/HCPCS: 71045; 80048; 83880; 84484; 85025; 87428; 93005; 94640; 96374; 99251; 99285; A4216; G0463

== ENCOUNTER 2022-07-03 13:12 | Emergency (ER) | payer MEDICARE, OTHER, SELFPAY ==
[2022-07-03 13:12] VITALS: BP 159/99; PULSE 61; RESP 20; TEMP 36.1; O2SAT 97; BMI 37.8
--- NOTE | 2022-07-03 14:25 | CT_ITS ---
STUDY: CT CERVICAL SPINE WITHOUT CONTRAST REASON FOR EXAM: Female, 81 years old. Neck pain due to falls. RADIATION DOSAGE (If Supplied By Facility): CTDIvol = ( 21.94 ) mGy, DLP = ( 442.37 ) mGycm TECHNIQUE: High resolution transaxial imaging was performed without contrast material. Sagittal and coronal images were reconstructed. Individualized dose optimization techniques were used for this CT. COMPARISON: None FINDINGS: Normal craniovertebral junction. There are degenerative changes of the anterior atlantoaxial articulation. Normal odontoid process. Normal cervical lordosis. Normal vertebral bodies and posterior osseous elements. C2-3: Normal endplates. Normal disc height and morphology. Normal central canal and intervertebral neuroforamina. C3-4: Normal endplates. Normal disc height and morphology. Normal central canal and intervertebral neuroforamina. C4-5: Normal endplates. Normal disc height and morphology. Normal central canal and intervertebral neuroforamina. C5-6: Moderate degree of disc space narrowing. Spondylosis. Uncovertebral arthrosis. No significant stenosis is seen. C6-7: Mild degree of disc space narrowing. No evidence of spinal stenosis. C7-T1: Normal endplates. Normal disc height and morphology. Normal central canal and intervertebral neuroforamina. Atherosclerotic plaque formation of the carotid bifurcations bilaterally. CT/Spine Cervical without Contras IMPRESSION: Multilevel degenerative changes, as described above. Electronically Signed: Ron Montana MD at 15:08 EST ,
--- NOTE | 2022-07-03 14:25 | CT_ITS ---
STUDY: CT BRAIN WITHOUT CONTRAST REASON FOR EXAM: Female, 81 years old. Head Injury due to a fall. Injury to the posterior skull. RADIATION DOSAGE (If Supplied By Facility): CTDIvol = ( 44.99 ) mGy, DLP = ( 779.24 ) mGycm TECHNIQUE: Transaxial CT imaging of the brain was performed without administration of intravenous contrast material. Individualized dose optimization techniques were used for this CT. COMPARISON: Comparison is made with prior examination 04/15/2017. FINDINGS: Normal soft tissue structures. Normal calvarium. There is mild cerebral atrophy with widening of the extra-axial spaces and ventricular dilatation. There are areas of decreased attenuation within the white matter tracts of the supratentorial brain, consistent with microvascular disease changes. Normal basal ganglia and thalami. Normal brainstem. Normal cerebellum. There is no intracranial hemorrhage. There are no findings of an acute ischemic infarction. Normal visualized paranasal sinuses. CT/Brain/Head without Contrast IMPRESSION: Chronic involutional changes of the brain. Electronically Signed: Ron Montana MD at 15:10 EST ,
--- NOTE | 2022-07-03 14:27 | EKG12_ITS ---
Test Reason : Blood Pressure : / mmHG Vent. Rate : 057 BPM Atrial Rate : 057 BPM P-R Int : 158 ms QRS Dur : 096 ms QT Int : 438 ms P-R-T Axes : 030 -42 058 degrees QTc Int : 426 ms Sinus bradycardia Left axis deviation Left ventricular hypertrophy ( R in aVL , Benji product , Romhilt-Leone ) Nonspecific ST abnormality Poor R wave progression Abnormal ECG Confirmed by APARNA MURRIETA, JOELLE ([id number]), mapping editor CRISTOFER MOREL ([id number]) on 07/05/2022 10:37:18 AM Referred By: Confirmed By:JOELLE BRAUN MD
--- NOTE | 2022-07-03 14:28 | EX.ED.DYSGE1 ---
HPI History of Present Illness Chief Complaint: Fall Narrative Narrative: 81-year-old female presenting with her after head injury. This was unwitnessed and the patient is a poor informant secondary to dementia. states he came around to the kitchen and saw her on the floor with some blood on the floor. He states she was able to get up and ambulate after this. She has been acting at her baseline. She is not on any blood thinners. She is not had any nausea or vomiting. He does not report any visual complaints. She was otherwise well prior to the fall. She does have a history of orthostatic hypotension and syncope in the past. [facility] Medical History COPD (chronic obstructive pulmonary disease) Dementia Diabetes mellitus type 2, controlled Hyperlipidemia Hypertension Home Medications amlodipine 10 mg tablet 10 mg PO DAILY 04/14/17 [History Last Taken Unknown] atenolol 50 mg tablet 50 mg PO BID 04/14/17 [History Last Taken Unknown] calcium carbonate 600 mg-vitamin D3 5 mcg (200 unit) tablet (Calcium 600 + D(3)) 1 ea PO DAILY 04/14/17 [History Last Taken Unknown] donepezil 10 mg tablet 10 mg PO QHS 04/14/17 [History Last Taken Unknown] lisinopril 40 mg tablet 40 mg PO DAILY 04/14/17 [History Last Taken Unknown] metformin 1,000 mg tablet 1,000 mg PO BIDCM 04/14/17 [History Last Taken Unknown] pravastatin 10 mg tablet 10 mg PO DAILY 04/14/17 [History Last Taken Unknown] vitamin E mixed 400 unit tablet 400 unit PO DAILY 04/14/17 [History Last Taken Unknown] memantine 10 mg tablet 1 tab PO BID 08/23/18 [History Last Taken Unknown] famotidine 20 mg tablet 20 mg PO DAILY 10/29/21 [History Last Taken Unknown] guselkumab 100 mg/mL subcutaneous auto-injector (Tremfya) mg subcut 10/29/21 [History Last Taken Unknown] prednisone 20 mg tablet 40 mg PO DAILY #10 TABLETS 10/29/21 [Rx Last Taken Unknown] Allergy/AdvReac Type Severity Reaction Status Date / Time Fish Containing Products Allergy Hives Verified 10/29/21 19:23 Penicillins [PCN] AdvReac Unknown Verified 10/14/18 23:29 Social History Smoking Status: Never smoker ROS ROS ED Review of Systems ROS Unobtainable: due to mental condition EXAM Physical Exam Const Vital Signs: 07/03/22 13:12 07/03/22 14:46 07/03/22 15:22 Temperature 96.9 F L Temperature Source Temporal Pulse Rate 61 Pulse Rate [Lying] 61 Pulse Rate [Sitting (for 1 minute prior to obtaining)] 74 Pulse Rate [Standing (for 1 minute prior to obtaining)] 71 Respiratory Rate 20 H Respiratory Effort Normal Non-Labored Blood Pressure 159/99 H Blood Pressure [Lying] 125/55 H Blood Pressure [Sitting (for 1 minute prior to obtaining)] 144/78 H Blood Pressure [Standing (for 1 minute prior to obtaining)] 125/72 H Blood Pressure Mean 119 Blood Pressure Mean [Lying] 78 Blood Pressure Mean [Sitting (for 1 minute prior to obtaining)] 100 Blood Pressure Mean [Standing (for 1 minute prior to obtaining)] 89 Pulse Ox 97 Oxygen Delivery Method Room Air Room Air Positive well nourished General Appearance ED: NAD; Negative for pallor HEENT Reports moist mucous membranes HEENT Narrative: Superficial abrasions/lacerations overlying the occiput. Eyes PERRL and EOMs intact bilaterally General Eye ED: Negative for pale conjunctiva or scleral icterus Chest Wall inspection of chest normal Resp normal respiratory effort and clear to auscultation bilaterally Cardio regular rate and regular rhythm GI normal to inspection, nondistended, normoactive bowel sounds Neuro CN's II-XII intact bilaterally and no sensory deficits noted Sensorium / Orientation: alert Motor Exam: strength 5/5 throughout Psych mental status grossly normal Skin no rashes or lesions noted General Skin Exam: Negative for jaundice or pallor MDM MDM MDM Narrative Medical decision making narrative: Well-appearing 81-year-old female presenting with her after a fall. This was unwitnessed, and her speculates that she might hit her head on the counter on the floor. He does not believe she lost consciousness. She has been acting at her baseline. She has been able to ambulate. She has some superficial laceration/abrasions on the occiput which are not amenable to terra or sutures. These were cleaned and a dressing will be placed. No acute focal neurologic deficits or lateralizing signs or symptoms. Because of her history of syncope and orthostatic hypotension I did obtain an EKG which on my interpretation shows sinus bradycardia ventricular to 57 bpm without sign of ischemic change or dysrhythmia. Patient is a poor informant with poorly understood mechanism for fall with superficial lacerations to the scalp and appears to be acting at baseline, but we did obtain a CT of the brain and the cervical spine today which were normal-appearing. The patient's does state that she has been otherwise well but does show concern for possible decreased p.o. intake so I did check basic lab work and her CBC and BMP are unremarkable with exception of a glucose of 285 without anion gap. High-sensitivity troponin is 25 and there is no reported history of any chest pain. I did attempt to obtain a urinalysis however the patient missed the hat while trying to give a sample. The patient's did not want to wait for any further testing. I was able to get orthostatic vital signs which were normal. Given this I feel she stable for discharge home. Return precautions were discussed. Wound care was discussed. Impression: 1. Superficial laceration to scalp 2. Closed head injury 3. Fall 4. History of syncope 5. History of orthostatic hypotension Lab Data Attestation: I reviewed the patient's lab results. Labs: Laboratory Results - last 24 hr 07/03/22 07/03/22 14:36 14:36 WBC 9.4 RBC 4.24 Hgb 13.4 Hct 39.7 MCV 93.6 MCH 31.6 MCHC 33.8 RDW Std Deviation 42.6 RDW Coeff of Pritesh 12.4 Plt Count 209 MPV 10.4 Immature Gran % (Auto) 0.200 Neut % (Auto) 74.2 H Lymph % (Auto) 15.4 L [place] % (Auto) 6.1 Eos % (Auto) 3.6 Baso % (Auto) 0.5 Absolute Neuts (auto) 7.0 Absolute Lymphs (auto) 1.44 Nucleated RBC % 0 Sodium 141 Potassium 4.0 Chloride 107 Carbon Dioxide 27.0 Anion Gap 7 BUN 15 Creatinine 0.87 Estim Creat Clear Calc 39.57 Est GFR (MDRD) Af Amer 80 Est GFR (MDRD) Non-Af 66 BUN/Creatinine Ratio 17.2 Glucose 285 H Calcium 9.6 Magnesium 1.8 Troponin I High Sens 25 Radiography Diagnostic Testing: Clinical Impression(s) from Imaging Studies Brain CT 07/03/22 14:25 IMPRESSION: Chronic involutional changes of the brain. Electronically Signed: Ron Montana MD at 15:10 EST , Cervical Spine CT 07/03/22 14:25 IMPRESSION: Multilevel degenerative changes, as described above. Electronically Signed: Ron Montana MD at 15:08 EST , Discharge Plan Triage Chief Complaint: Fall ED Provider: Deny Ellis Dx/Rx/DC Orders Instructions: ED Head Injury (Adult), ED Laceration Small or ..., ED Fall Prevention Prescriptions: No Action donepezil 10 MG tablet 10 mg PO QHS calcium carbonate-vitamin D3 [Calcium 600 + D(3)] 1 EACH tablet 1 ea PO DAILY pravastatin 10 MG tablet 10 mg PO DAILY amlodipine 10 MG tablet 10 mg PO DAILY metformin 1,000 MG tablet 1,000 mg PO BIDCM lisinopril 40 MG tablet 40 mg PO DAILY atenolol 50 MG tablet 50 mg PO BID vitamin E mixed 400 UNIT tablet 400 unit PO DAILY memantine 10 MG tablet 1 tab PO BID famotidine 20 mg Tablet 20 mg PO DAILY Tremfya 100 mg/mL auto-injector SUBCUT Rx Instructions: every 8 weeks prednisone 20 MG tablet 40 mg PO DAILY Qty: 10 0RF Primary Care Provider: Keith Parr Referrals: Keith Parr MD [Primary Care Provider] - Disposition Disposition: Home, Self Care
[2022-07-03 14:41] LABS: Absolute Lymphocyte Count 1.44 X10^3/uL (0.83-4.51); Basophil# 0.05 X10^3/uL; Basophil% 0.5 % (0-1); Eosinophil# 0.34 X10^3/uL; Eosinophils% 3.6 % (0-5); Hematocrit 39.7 % (37-47); Hemoglobin 13.4 g/dL (12.0-15.0); Lymphocyte # 1.44 X10^3/ul (0.83-4.51); Lymphocyte % 15.4 % (19-41); Mean Corp Hgb Conc 33.8 g/dL (32-36); Mean Corpuscular Hgb 31.6 pg (27.0-32.0); Mean Corpuscular Volume 93.6 fL (81-99); Mean Platelet Vol. 10.4 fl (6.2-12.0); Monocyte# 0.57 X10^3/uL; Monocyte% 6.1 % (0-10); NRBC Flagged by Analyzer 0 % (0-5); Neutrophil # 6.96 X10^3/uL (2.7-7.7); Neutrophil % 74.2 % (47-70); Platelet Count 209 K/mm3 (150-450); RBC Distribution Width CV 12.4 % (11.6-14.6); RBC Distribution Width SD 42.6 fl (35.1-43.9); Red Blood Count 4.24 M/mm3 (4.2-5.4); White Blood Count 9.4 K/mm3 (4.4-11.0)
[2022-07-03 15:01] LABS: Anion Gap 7 (5-15); BUN 15 mg/dL (7-18); BUN/Creat Ratio 17.2 RATIO (10-20); Calcium,Total 9.6 mg/dL (8.5-10.1); Chloride 107 mmol/L (98-107); Creatinine, Serum 0.87 mg/dL (0.55-1.02); EST Glomerular Filtration Rate 66 mL/min (>60); Est Glom Filt Rate - Afr Amer 80 mL/min (>60); Estimated Creatinine Clearance 39.57 ml/min; Glucose 285 mg/dL (74-106); Magnesium 1.8 mg/dL (1.6-2.6); Sodium Level 141 mmol/L (136-145); Troponin-I HS 25 pg/mL (3.0-54.0)
[2022-07-03 15:22] VITALS: BP 125/55; BP 125/72; BP 144/78; PULSE 61; PULSE 71; PULSE 74
== END 2022-07-03 16:27 | disposition home or self-care (01) ==
PROVIDERS: Emergency Provider Student in an Organized Health Care Education/Training Program; PCP Family Medicine; Visit Provider Student in an Organized Health Care Education/Training Program
DX: S01.01XA Laceration without foreign body of scalp, initial encounter (principal); F03.90 Unspecified dementia, unspecified severity, without behavioral disturbance, psychotic disturbance, mood disturbance, and anxiety; W19.XXXA Unspecified fall, initial encounter
CPT/HCPCS: 70450; 72125; 80048; 83735; 84484; 85025; 93005; 99284; A4216

== ENCOUNTER 2022-07-13 10:23 | Emergency (ER) | payer MEDICARE, OTHER, SELFPAY ==
[2022-07-13 10:26] VITALS: BP 190/80; PULSE 71; RESP 19; TEMP 36.6; O2SAT 95; BMI 28.3
[2022-07-13 10:33] VITALS: BP 187/85; PULSE 68; RESP 16; TEMP 36.6; O2SAT 94
--- NOTE | 2022-07-13 10:53 | CT_ITS ---
STUDY: CT BRAIN WITHOUT CONTRAST REASON FOR EXAM: Female, 81 years old. Mental status change. Increasing confusion. Dementia. RADIATION DOSAGE (If Supplied By Facility): CTDIvol = ( 44.99 ) mGy, DLP = ( 762.36 ) mGycm TECHNIQUE: Transaxial CT imaging of the brain was performed without administration of intravenous contrast material. Individualized dose optimization techniques were used for this CT. COMPARISON: Comparison is made with prior study dated 12/31/2022. FINDINGS: Normal soft tissue structures. Normal calvarium. There is mild cerebral atrophy with widening of the extra-axial spaces and ventricular dilatation. There are areas of decreased attenuation within the white matter tracts of the supratentorial brain, consistent with microvascular disease changes. 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 Normal brainstem. Normal cerebellum. There is no intracranial hemorrhage. There are no findings of an acute ischemic infarction. Atherosclerotic calcific plaque seen at the level of the cavernous portions of the internal carotid arteries bilaterally. Normal visualized paranasal sinuses. CT/Brain/Head without Contrast IMPRESSION: Chronic involutional changes of the brain. Electronically Signed: Ron Montana MD at 11:54 EST ,
--- NOTE | 2022-07-13 10:53 | EKG12_ITS ---
Test Reason : Blood Pressure : / mmHG Vent. Rate : 069 BPM Atrial Rate : 069 BPM P-R Int : 170 ms QRS Dur : 094 ms QT Int : 420 ms P-R-T Axes : 005 -43 010 degrees QTc Int : 450 ms Normal sinus rhythm Left axis deviation Moderate voltage criteria for LVH, may be normal variant ( R in aVL , Benji product ) Nonspecific ST and T wave abnormality Abnormal ECG Confirmed by JORY MURRIETA, JESUS ALBERTO ([id number]), copy editor CRISTOFER MOREL ([id number]) on 07/17/2022 10:29:55 AM Referred By: RUSSEL Confirmed By:JESUS ALBERTO CORLEY MD
--- NOTE | 2022-07-13 10:54 | CT_ITS ---
STUDY: CT ABDOMEN AND PELVIS WITHOUT CONTRAST REASON FOR EXAM: Female, 81 years old. Increasing abdominal pain and confusion. COPD. RADIATION DOSAGE (If Supplied By Facility): CTDIvol = ( 21.16 ) mGy, DLP = ( 1092.83 ) mGycm TECHNIQUE: Transaxial images were obtained from the dome of the diaphragm to the symphysis pubis without oral contrast, and without intravenous contrast. Sagittal and coronal images were reconstructed. Individualized dose optimization techniques were used for this CT. COMPARISON: Comparison is made with prior study dated 01/13/2011. FINDINGS: There is an 8.5 mm noncalcified nodule in the anterior aspect of the right lower lobe as seen on axial image #18. This is essentially unchanged. Minimal linear scarring at the right lung base. The visualized portions of the heart are within normal limits. Normal liver. Low level density is seen in the dependent portion of the gallbladder lumen. This may represent sludge Normal spleen. Normal pancreas. Normal bilateral adrenal glands. Normal right kidney. Fullness of the left renal pelvis although no hydronephrosis is seen. Normal visualized stomach. Normal small intestine. There are multiple colonic diverticula consistent with diverticulosis. The appendix is visualized and appears normal. There is diffuse atherosclerotic calcification of the abdominal aorta and its major visceral branches, without a demonstrated aneurysm. Normal inferior vena cava. Normal retroperitoneum. Normal urinary bladder. Findings suggestive of a uterine prolapse. Clinical correlation recommended. Normal abdominal wall. There are degenerative changes of the visualized lumbar spine. CT/Abdomen/Pelvis without Cont IMPRESSION: 8.5 mm noncalcified nodule in the anterior aspect of the right lower lobe. This is essentially unchanged. Findings suggestive of sludge in the gallbladder lumen. Fullness of the left renal pelvis. Findings suggestive of a uterine prolapse. Clinical correlation recommended. Electronically Signed: Ron Montana MD at 12:04 EST ,
--- NOTE | 2022-07-13 10:56 | EDS_ITS ---
HPI History of Present Illness Chief Complaint: Mental Status Change Detail of Chief Complaint: Mental status change Informant: patient, spouse/S.O. and family Narrative Narrative: Patient presents the urgency department via EMS from home with complaint of mental status change this morning. Most of the history comes from the patient's and daughter who are with her. Patient has history of dementia. states that she wakes her up every morning this morning had a hard time waking her up and she was just hard to arouse and had unintelligible speech. Per family members this is unusual. Her mentation on arrival the emergency department is essentially back to baseline. Patient denies chest pain or abdominal pain although family member state that she did complain of belly pain last evening and again this morning per . Patient also had a fall last week was seen in the emergency department for head injury. She describes a mild headache. She denies fever or recent illness otherwise. No history of UTIs. [facility] Medical History COPD (chronic obstructive pulmonary disease) Dementia Diabetes mellitus type 2, controlled Hyperlipidemia Hypertension Home Medications amlodipine 10 mg tablet 10 mg PO DAILY 04/14/17 [History Last Taken Unknown] atenolol 50 mg tablet 50 mg PO BID 04/14/17 [History Last Taken Unknown] calcium carbonate 600 mg-vitamin D3 5 mcg (200 unit) tablet (Calcium 600 + D(3)) 1 ea PO DAILY 04/14/17 [History Last Taken Unknown] donepezil 10 mg tablet 10 mg PO QHS 04/14/17 [History Last Taken Unknown] lisinopril 40 mg tablet 40 mg PO DAILY 04/14/17 [History Last Taken Unknown] metformin 1,000 mg tablet 1,000 mg PO BIDCM 04/14/17 [History Last Taken Unknown] pravastatin 10 mg tablet 10 mg PO DAILY 04/14/17 [History Last Taken Unknown] vitamin E mixed 400 unit tablet 400 unit PO DAILY 04/14/17 [History Last Taken Unknown] memantine 10 mg tablet 1 tab PO BID 08/23/18 [History Last Taken Unknown] famotidine 20 mg tablet 20 mg PO DAILY 10/29/21 [History Last Taken Unknown] guselkumab 100 mg/mL subcutaneous auto-injector (Tremfya) mg subcut 05/07/22 [History Last Taken Unknown] prednisone 20 mg tablet 40 mg PO DAILY #10 TABLETS 10/29/21 [Rx Last Taken Unknown] Allergy/AdvReac Type Severity Reaction Status Date / Time Fish Containing Products Allergy Hives Verified 07/13/22 10:24 Penicillins [PCN] AdvReac Unknown Verified 07/13/22 10:24 Social History Smoking Status: Never smoker ROS ROS ED ROS Narrative Mental status change Review of Systems ROS Unobtainable: other Constitutional Constitutional ED: Reports lethargy; Denies chills, fever(s), sweats or weight loss Eyes Eyes: Denies blurry vision, change in vision or diplopia ENT ENT ED: Denies rhinorrhea or sore throat Cardiovascular Cardiovascular: Denies chest pain, orthopnea or racing heartbeat Respiratory/Chest Respiratory/Chest: Denies cough, dyspnea, dyspnea on exertion, orthopnea or sputum Gastrointestinal Gastrointestinal: Denies abdominal pain, diarrhea, nausea or vomiting Genitourinary Genitourinary ED: Denies dysuria, hematuria or urinary frequency Musculoskeletal Musculoskeletal: Denies arthralgias, back pain, myalgias or neck pain Integumentary Denies abscess, Abrasions or rash Neurologic Neurologic: Reports headache(s) and other Details: Mental status change ; Denies weakness Psychiatric Psychiatric: Denies anxiety, depression or suicidal thoughts Endocrine Endocrinology: Denies polydipsia, polyphagia or polyuria Hematologic/Lymphatic Hematologic/Lymphatic: Denies easy bleeding, easy bruising or lymphadenopathy Allergic/Immunologic Allergic/Immunologic ED: Denies mouth swelling, tongue swelling or urticaria EXAM Physical Exam Const Vital Signs: 07/13/22 10:26 07/13/22 10:33 Temperature 97.9 F 97.9 F Temperature Source Temporal Temporal Pulse Rate 71 68 Respiratory Rate 19 H 16 Blood Pressure 190/80 H 187/85 H Blood Pressure Mean 116 119 Pulse Ox 95 94 Oxygen Delivery Method Room Air Room Air Positive well nourished and well developed General Appearance ED: well developed and NAD HEENT Reports TM's clear and moist mucous membranes normocephalic and atraumatic; Negative for trauma or tenderness Tympanic Membrane ED: Yes TM's clear Eyes PERRL and EOMs intact bilaterally General Eye ED: Negative for pale conjunctiva or scleral icterus Neck no lymphadenopathy, supple and no JVD General: Negative for tenderness Chest Wall inspection of chest normal and palpation of chest normal Chest: Negative for tenderness Resp normal respiratory effort and clear to auscultation bilaterally Effort and Inspection: Negative for respiratory distress or pain with movement Auscultation: Negative for rhonchi, wheezes or diminished lung sounds Cardio regular rate, regular rhythm, S1 normal heart sound, S2 normal heart sound and no murmurs Peripheral Pulses: pulses 2+ throughout GI normal to inspection, nondistended, normoactive bowel sounds, soft to palpation, non-tender, non-distended and no masses Back/Spine no CVA tenderness and no thoracic nor lumbar tenderness Extremity normal to inspection General Extremety ED: Negative for edema General Extremity: Negative for edema Neuro oriented x3, CN's II-XII intact bilaterally, no sensory deficits noted and gait normal Sensorium / Orientation: awake, alert, oriented to person, oriented to place and oriented to time Motor Exam: strength 5/5 throughout and strength abnormal Psych mental status grossly normal Skin no rashes or lesions noted and no wounds MDM MDM MDM Narrative Medical decision making narrative: IV line established on arrival. Patient placed on a manager monitoring. In the differential includes infectious process versus intracranial acute process. I do not see any acute evidence of stroke. In the differential includes progressive dementia versus metabolic cause of symptoms. EKG obtained arrival showed a sinus rhythm with a rate of 69 bpm with some nonspecific ST changes. Troponin was negative. Urinalysis was normal. Electrolytes showed slight depression and a potassium of 3.3. CT brain showed chronic involutional changes. CT scan of the abdomen pelvis really did not show anything acute or surgical there was some thought of possible prolapse of the uterus however nursing perform straight cath and they did not note any tissue from the vagina. This point etiology of symptoms unclear and patient is at her baseline. She will be discharged home with advised to follow-up with primary care physician 3 to 5 days. Lab Data Attestation: I reviewed the patient's lab results. Labs: Laboratory Results - last 24 hr 07/13/22 07/13/22 07/13/22 10:17 10:17 10:50 WBC 9.2 RBC 4.41 Hgb 13.6 Hct 40.2 MCV 91.2 MCH 30.8 MCHC 33.8 RDW Std Deviation 42.1 RDW Coeff of Pritesh 12.6 Plt Count 244 MPV 10.4 Immature Gran % (Auto) 0.300 Neut % (Auto) 51.5 Lymph % (Auto) 29.2 [place] % (Auto) 7.2 Eos % (Auto) 11.0 H Baso % (Auto) 0.8 Absolute Neuts (auto) 4.7 Absolute Lymphs (auto) 2.68 Nucleated RBC % 0 Sodium 142 Potassium 3.3 L Chloride 108 H Carbon Dioxide 27.0 Anion Gap 7 BUN 17 Creatinine 0.67 Estim Creat Clear Calc 37.74 Est GFR (MDRD) Af Amer 108 Est GFR (MDRD) Non-Af 89 BUN/Creatinine Ratio 25.2 H Glucose 191 H Calcium 8.8 Troponin I High Sens 27 Urine Color Yellow Urine Clarity Clear Urine pH 6.5 Ur Specific Jenkins 1.020 Urine Protein 30 H Urine Glucose (UA) 250 H Urine Ketones Negative Urine Occult Blood 25 H Urine Nitrite Negative Urine Bilirubin Negative Urine Urobilinogen Normal Ur Leukocyte Esterase Negative Urine RBC 0 SEEN Urine WBC 0 SEEN Ur Squamous Epith Cells 0 SEEN Urine Bacteria 0 SEEN Urine Mucus 0 SEEN Radiography Diagnostic Testing: Clinical Impression(s) from Imaging Studies Brain CT 07/13/22 10:53 IMPRESSION: Chronic involutional changes of the brain. Electronically Signed: Ron Montana MD at 11:54 EST , Abdomen/Pelvis CT 07/13/22 10:54 IMPRESSION: 8.5 mm noncalcified nodule in the anterior aspect of the right lower lobe. This is essentially unchanged. Findings suggestive of sludge in the gallbladder lumen. Fullness of the left renal pelvis. Findings suggestive of a uterine prolapse. Clinical correlation recommended. Electronically Signed: Ron Montana MD at 12:04 EST , Chest X-Ray 07/13/22 11:19 IMPRESSION: Hyperinflation. The lungs are clear. Electronically Signed: Ron Montana MD at 11:52 EST , 1 view chest x-ray obtained interpreted by myself as no acute disease process without evidence of infiltrate or pneumothorax. Radiology in agreement. EKG Initial EKG: Attestation: I personally reviewed and interpreted this EKG as follows: Comments: Sinus rhythm with a ventricular rate of [address] changes Discharge Plan Triage Chief Complaint: Mental Status Change ED Provider: Susan Shultz Dx/Rx/DC Orders Clinical Impression: Altered mental status, History of hypertension, History of diabetes mellitus, Dementia Instructions: Delirium and Dementia, ED ALOC Prescriptions: No Action donepezil 10 MG tablet 10 mg PO QHS calcium carbonate-vitamin D3 [Calcium 600 + D(3)] 1 EACH tablet 1 ea PO DAILY pravastatin 10 MG tablet 10 mg PO DAILY amlodipine 10 MG tablet 10 mg PO DAILY metformin 1,000 MG tablet 1,000 mg PO BIDCM lisinopril 40 MG tablet 40 mg PO DAILY atenolol 50 MG tablet 50 mg PO BID vitamin E mixed 400 UNIT tablet 400 unit PO DAILY memantine 10 MG tablet 1 tab PO BID famotidine 20 mg Tablet 20 mg PO DAILY Tremfya 100 mg/mL auto-injector SUBCUT Rx Instructions: every 8 weeks prednisone 20 MG tablet 40 mg PO DAILY Qty: 10 0RF Primary Care Provider: Abrahan Bolton Referrals: Keith Parr MD [Non-Staff] - 3-5 Days Abrahan Bolton DO [Primary Care Provider] - 3-5 Days Disposition Disposition: Home, Self Care
[2022-07-13 11:06] LABS: Bacteria 0 SEEN /hpf (None Seen); Mucous, Urine 0 SEEN /hpf (<or=2+); Red Blood Cells-Urine 0 SEEN /hpf (0-5); Squamous Epithelial Cells - UA 0 SEEN /hpf (5-10); White Blood Cells 0 SEEN /hpf (0-5)
[2022-07-13 11:09] LABS: Absolute Lymphocyte Count 2.68 X10^3/uL (0.83-4.51); Absolute Neutrophil Count 4.7 X10^3/uL (2.0-7.7); Basophil# 0.07 X10^3/uL; Basophil% 0.8 % (0-1); Eosinophil# 1.01 X10^3/uL; Hematocrit 40.2 % (37-47); Hemoglobin 13.6 g/dL (12.0-15.0); Lymphocyte # 2.68 X10^3/ul (0.83-4.51); Lymphocyte % 29.2 % (19-41); Mean Corp Hgb Conc 33.8 g/dL (32-36); Mean Corpuscular Hgb 30.8 pg (27.0-32.0); Mean Corpuscular Volume 91.2 fL (81-99); Mean Platelet Vol. 10.4 fl (6.2-12.0); Monocyte# 0.66 X10^3/uL; Monocyte% 7.2 % (0-10); NRBC Flagged by Analyzer 0 % (0-5); Neutrophil # 4.72 X10^3/uL (2.7-7.7); Neutrophil % 51.5 % (47-70); Platelet Count 244 K/mm3 (150-450); RBC Distribution Width CV 12.6 % (11.6-14.6); RBC Distribution Width SD 42.1 fl (35.1-43.9); Red Blood Count 4.41 M/mm3 (4.2-5.4); White Blood Count 9.2 K/mm3 (4.4-11.0)
[2022-07-13 11:12] LABS: Color, Urine Yellow (Yellow); Glucose, Dipstick 250 mg/dl (Normal); Ketone-Dipstick Negative (Negative); Leukocyte Esterase-Dipstick Negative /ul (Negative); Nitrite-Dipstick Negative (Negative); Occult Blood-Urine 25 /ul (Negative); Protein-Dipstick 30 mg/dl (Negative); Urine Bilirubin Dipstick Negative (Negative); Urine Clarity Clear (Clear); Urine Urobilinogen Normal (Normal); Urine pH 6.5 (5.0 - 8.0)
--- NOTE | 2022-07-13 11:19 | RAD_ITS ---
STUDY: X-RAY CHEST REASON FOR EXAM: Female, 81 years old. Mental status change TECHNIQUE: Single AP portable view of the chest. COMPARISON: Comparison is made with prior study 10/29/2021. FINDINGS: EKG elected to seen. Hyperinflation. The lungs are clear. There is no demonstrated pleural abnormality. Normal size heart. Normal mediastinum and trisha. Normal visualized pulmonary arteries. There is atherosclerotic tortuosity of the aortic arch and descending thoracic aorta. There are diffuse degenerative changes of the visualized thoracic spine. Normal visualized ribs, clavicles, and shoulders. There is no demonstrated abnormality of the visualized soft tissue structures of the upper abdomen. RAD/Chest 1 View (Portable) IMPRESSION: Hyperinflation. The lungs are clear. Electronically Signed: Ron Montana MD at 11:52 EST ,
[2022-07-13 11:24] LABS: Anion Gap 7 (5-15); BUN 17 mg/dL (7-18); BUN/Creat Ratio 25.2 RATIO (10-20); Calcium,Total 8.8 mg/dL (8.5-10.1); Chloride 108 mmol/L (98-107); Creatinine, Serum 0.67 mg/dL (0.55-1.02); EST Glomerular Filtration Rate 89 mL/min (>60); Est Glom Filt Rate - Afr Amer 108 mL/min (>60); Estimated Creatinine Clearance 37.74 ml/min; Glucose 191 mg/dL (74-106); Potassium 3.3 mmol/L (3.5-5.1); Sodium Level 142 mmol/L (136-145); Troponin-I HS 27 pg/mL (3.0-54.0)
[2022-07-13 12:26] VITALS: BP 157/75; PULSE 68
== END 2022-07-13 12:34 | disposition home or self-care (01) ==
PROVIDERS: Emergency Provider Emergency Medicine; PCP Student in an Organized Health Care Education/Training Program; Visit Provider Emergency Medicine
DX: R41.82 Altered mental status, unspecified (principal); F03.90 Unspecified dementia, unspecified severity, without behavioral disturbance, psychotic disturbance, mood disturbance, and anxiety
CPT/HCPCS: 70450; 71045; 74176; 80048; 81001; 84484; 85025; 93005; 99285